=== PATIENT | male | born 1980 | race Caucasian/White ===

== ENCOUNTER 2024-07-31 10:21 | Emergency (ER) | payer OTHER, SELFPAY ==
--- NOTE | ~2024-07-31 | XR_ITS ---
EXAMINATION: XR ankle LT min 3V DATE: 07/31/2024 11:08 INDICATION: Left ankle injury and pain. TECHNIQUE: 4 views of left ankle were obtained. COMPARISON: None. FINDINGS: Alignment is normal. No fracture. Joint spaces are normal. There is ankle soft tissue swell ing. IMPRESSION: 1. No fracture. 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 No fracture.
[2024-07-31 10:58] VITALS: BP 153/80; PULSE 108; RESP 16; TEMP 36.3; O2SAT 98
[2024-07-31 11:01] VITALS: BP 153/80; PULSE 108; RESP 16; TEMP 36.3; O2SAT 98
--- NOTE | 2024-07-31 11:05 | ED.LOWEXIN ---
HPI - Extremity Injury (Lower) General Chief Complaint: Extremity Injury, Lower Stated Complaint: lt lower extremity injury Time Seen by Provider: 07/31/24 11:05 Source: patient, RN notes reviewed and old records reviewed Mode of arrival: ambulatory Limitations: no limitations History of Present Illness HPI Narrative: 44-year-old male to [facility] with complaint left lateral ankle pain. Patient reports rolling his ankle while playing tennis just prior to arrival. Patient hypertensive and tachycardic upon arrival, States he cannot walk on his left foot. Patient denies any prior history of injury, surgery. Patient denies numbness, tingling. Patient resting in wheelchair with left leg elevated, appears uncomfortable. Mild swelling present to left lateral ankle. Patient in no acute distress. Patient asking if it is possible to receive a temporary handicap parking pass. Related Data Home Medications Medication Instructions Recorded Confirmed dextroamphetamine-amphetamine 20 1 tablet PO BID 07/31/24 07/31/24 mg tablet Allergies Allergy/AdvReac Type Severity Reaction Status Date / Time No Known Allergies Allergy Verified 07/31/24 10:58 Review of Systems Review of Systems: All systems reviewed & are unremarkable except as noted in HPI and below Constitutional: Constitutional: Reports no additional constitutional complaints Eyes: Eyes: Reports no additional eye complaints ENT: Reports system reviewed and no additional complaints, except as documented Cardiovascular: Cardiovascular: Reports no additional cardiovascular complaints, Denies chest pain and Denies dyspnea Respiratory: Respiratory: Reports no additional respiratory complaints, Denies cough and Denies dyspnea Musculoskeletal: Musculoskeletal: Reports as per HPI, Reports arthralgias and Reports joint swelling Neurologic: Reports system reviewed and no additional complaints, except as documented Psychiatric: Psychiatric: Reports no additional psychiatric complaints PMFSH Comments At the time of my signature, I reviewed and agree with the nursing past medical, surgical, social, and family history. There is no relevant family history pertinent to the patient complaint. Exam Const: General: cooperative, healthy appearing, no acute distress, well developed, alert, uncomfortable, well groomed and well nourished Nutritional Appearance: well nourished Orientation/consciousness: patient oriented x3 Limitations: no limitations HENMT: Head: normal to inspection Ears: external ears normal Face/Nose/Sinus: Normal external nose present, Normal nares present, normal facial exam, No erythema and No edema Face and sinus: normal facial exam, no erythema and no edema Mouth: Yes Normal oral and palatal mucosa present Eyes: General: appearance normal, both eyes and all related structures Neck: Neck: normal visual inspection, full ROM and no meningeal signs Chest: Chest palpation & inspection: normal inspection of the chest Resp: Effort & Inspection: normal respiratory effort and able to speak in complete sentences Cardio: Jugular venous distension: no JVD Rate: tachycardic Back/Spine/Pelvis: Cervical Spine: cervical ROM normal Skin: General skin exam: normal color, no rashes or lesions noted and turgor normal Neuro: General: patient oriented x3, moves all extremities and no meningeal signs Speech: normal speech Gait exam (Neuro): gait abnormal and Assisted gait required wheelchair bound Extrem: General: normal exam except as noted Left lower extremity: ankle Details: tenderness Location: of the lateral malleolus, swelling Details: laterally and normal ROM Psych: Appearance: grossly normal and well kempt Course Course Emergency Course: Some parts of this dictation were generated by voice recognition software and may contain typographical and/or grammatical inaccuracies. Level of Care: Express Care Visit Vital Signs Vital signs: Vital Signs Temperature 36.3 C L 07/31/24 10:58 Pulse Rate 108 H 07/31/24 10:58 Respiratory Rate 16 07/31/24 10:58 Blood Pressure 153/80 H 07/31/24 10:58 Pulse Oximetry 98 07/31/24 10:58 Temperature 36.3 C L 07/31/24 11:01 Pulse Rate 108 H 07/31/24 11:01 Respiratory Rate 16 07/31/24 11:01 Blood Pressure 153/80 H 07/31/24 11:01 Pulse Oximetry 98 07/31/24 11:01 reviewed MDM - Extremity Injury (Lower) MDM Narrative Medical decision making narrative: 44-year-old male to [facility] with complaint left lateral ankle pain. Patient reports rolling his ankle while playing tennis just prior to arrival. Patient hypertensive and tachycardic upon arrival, States he cannot walk on his left foot. Patient denies any prior history of injury, surgery. Patient denies numbness, tingling. Patient resting in wheelchair with left leg elevated, appears uncomfortable. Mild swelling present to left lateral ankle. Patient in no acute distress. Patient asking if it is possible to receive a temporary handicap parking pass. On exam, patient acutely tender with light palpation left lateral ankle. mild swelling noted to left lateral ankle. Radiology negative for acute findings in clinic. Patient requesting postoperative boot. Patient is sitting uncomfortably in exam room nontoxic in appearance. Patient appropriate for outpatient treatment and follow-up. Discharge instructions reviewed with patient, as well as provided in writing per nursing staff. The instructions also include specific and strict return/GO TO THE ER as well as f/u information. All questions have been answered, and the patient deny any further questions with discharge and discharge plan. Some parts of this dictation were generated by voice recognition software and may contain typographical and/or grammatical inaccuracies. Differential Diagnosis Differential diagnosis: Likely ankle sprain and strain, acute internal derangement of knee, fracture of femur, fracture of hip, puncture wound of foot, fracture of toe and ankle fracture Imaging Data Radiologist's impression: EXAMINATION: XR ankle LT min 3V DATE: 07/31/2024 11:08 INDICATION: Left ankle injury and pain. TECHNIQUE: 4 views of left ankle were obtained. COMPARISON: None. FINDINGS: Alignment is normal. No fracture. Joint spaces are normal. There is ankle soft tissue swelling. IMPRESSION: 1. No fracture. Discharge Plan Discharge Clinical Impression: Ankle sprain and strain Patient Disposition: Home, Self-Care Condition: Stable Instructions: Ankle Sprain (DC), P.R.I.C.E. Treatment (ED) Additional Instructions: please review attached instruction regarding ankle sprain and corey treatment and implement suggestions as tolerated alternate Tylenol and ibuprofen as needed for pain or swelling follow-up with your primary care provider next week for further evaluation and treatment if needed for new or worsening symptoms please go directly to the emergency department Prescriptions: No Action dextroamphetamine-amphetamine 20 mg tablet 1 tablet PO BID Follow-up/Referrals: UNKNOWN,DOCTOR [Non-Staff] -
== END 2024-07-31 11:41 | disposition home or self-care (01) ==
PROVIDERS: Emergency Provider Nurse Practitioner Family; PCP Chiropractor
DX: S93.402A Sprain of unspecified ligament of left ankle, initial encounter (principal); S96.912A Strain of unspecified muscle and tendon at ankle and foot level, left foot, initial encounter; X50.9XXA Other and unspecified overexertion or strenuous movements or postures, initial encounter; Y93.73 Activity, racquet and hand sports; F90.9 Attention-deficit hyperactivity disorder, unspecified type
CPT/HCPCS: 73610; 99213; G0463

== ENCOUNTER 2024-12-07 11:05 | Outpatient (CLI) | payer OTHER, SELFPAY ==
--- NOTE | ~2024-12-07 | MR_ITS ---
EXAMINATION: MR ankle LT wo con DATE: 12/07/2024 11:42 INDICATION: Sprain unspecified ligament of left ankle. TECHNIQUE: Magnetic resonance imaging (MRI) of the left ankle was performed without intravenous contr ast. Sequences included sagittal PD-weighted FS FSE, sagittal PD-weighted FSE, coronal PD-weighted FS FSE, coronal PD-weighted FSE, axial PD-weighted FS FSE, and axial PD-weighted FSE. COMPARISON: Left ankle radiographs 11/25/2024 FINDINGS: Medial ankle ligaments: There is a partial tear of superficial component of the deltoid ligament, which is enlarged with incr eased signal and some indistinct fibers. Lateral ankle ligaments: There are partial tears of anterior talofibular ligament and calcaneofibular ligament characterized b y thickening and increased signal intensity. There is thickening of posterior talofibular ligament. A nterior and posterior tibiofibular ligaments are intact. Tendons: The anterior and medial ankle tendons are normal. There is a longitudinal split tear of peroneus brev is tendon. There is a partial tear of peroneus longus tendon, which demonstrates a focal caliber quinn ge. The Achilles tendon is normal. Plantar fascia: Normal. Bones/other: There is an osteochondral lesion of lateral talar dome measuring 8 x 4 mm. Fluid: There is ankle joint effusion. IMPRESSION: 1. Osteochondral lesion of lateral talar dome. 2. Medial and lateral ankle sprains. 3. Partial tears of peroneus brevis and peroneus longus tendons. 4. Ankle joint effusion. Reviewed, dictated and finalized at location []
== END 2024-12-07 11:06 | disposition home or self-care (01) ==
PROVIDERS: PCP Orthopaedic Surgery; Visit Provider Orthopaedic Surgery
DX: M25.472 Effusion, left ankle (principal); S93.402D Sprain of unspecified ligament of left ankle, subsequent encounter; X58.XXXD Exposure to other specified factors, subsequent encounter
CPT/HCPCS: 73721